=== PATIENT | female | born 1985 | race Caucasian/White ===

== ENCOUNTER 2021-08-08 15:57 | Emergency (ER) | payer OTHER, SELFPAY ==
[2021-08-08 17:10] VITALS: BP 102/73; PULSE 92; RESP 18; TEMP 36.8; O2SAT 100; BMI 19.8
--- NOTE | 2021-08-08 17:42 | HMH.EDUTC ---
[facility] [place] Disposition Clinical Impression: Dental abscess Disposition: Home, Self-Care Condition on Discharge: Good Instructions: Tooth Abscess, Amoxicillin and Clavulanic Acid, Ibuprofen Additional Instructions: Use dental balls as prescribed Follow up with Dentist as soon as possible, call now and make appointment as it may take you several weeks to get in Take medication as prescribed and make sure to take antibiotic with food as this may help with Gi upset Return if needed Straight to ER if any life threatening symptoms Prescriptions: Ibuprofen [Ibuprofen 400mg Tablet] 400 mg PO Q4HP PRN #20 tab PRN Reason: Moderate Pain Transmission Status: Pending to [facility] Amoxicillin/Potassium Clav [Augmentin 875-125 Tablet] 1 tab PO Q12H 10 Days #20 tab Transmission Status: Pending to [facility] Referrals: Urvashi Simpson APRN [Primary Care Provider] - As needed Time of Disposition: 17:52 Medical Decision Making - Noble Inquiry Pt receiving controlled substance: No Noble was queried for this patient: No Vital Signs: 08/08/21 17:10 Temperature 98.3 F Temperature Source Oral Pulse Rate [Right Brachial] 92 H Respiratory Rate 18 Blood Pressure [Right Arm] 102/73 L Blood Pressure Mean [Right Arm] 82 Blood Pressure Source [Right Arm] Automatic Cuff Blood Pressure Position [Right Arm] Sitting 02 Sat by Pulse Oximetry 100 Oxygen Delivery Method Room Air Medical Decision Narrative: Due to patient size and weight medication dosed per pharmacy [facility] HPI - General Stated complaint: DENTAL ABSCESS Time Seen by Provider: 08/08/21 17:42 Mode of Arrival: Ambulatory Source of Information: Patient Limitations: No Limitations Description of Symptoms (Recalled from Triage Doc. by RN): C/O ABSCESSED TOOTH HEENT Symptoms (Recalled from RN notes): Yes Resp Symptoms (Recalled from RN notes): No Skin Symptoms (Recalled from RN notes): No MS Symptoms (Recalled from RN notes): No Functional Status (Recalled from RN notes): WNL - History of Present Illness Provider Complaint: Patient states that she has several broken teeth on her left lower gumline in the back States that she has been having pain and swelling in her jaw and knew she was getting a dental infection so she came in to get antibioitic todya when the swelling in her lower jaw area was worse - Related Data Previous Rx's Medication Instructions Recorded Amoxicillin/Potassium Clav 1 tab PO Q12H 10 Days #20 tab 08/08/21 [Augmentin 875-125 Tablet] Ibuprofen [Ibuprofen 400mg 400 mg PO Q4HP PRN #20 tab 08/08/21 Tablet] Allergies Allergy/AdvReac Type Severity Reaction Status Date / Time No Known Allergies Allergy Verified 11/24/18 19:32 - Worker's Comp Is this a Worker's Comp case?: No [facility] History - Hepatitis A Screen Drug use history?: No High risk sexual behaviors?: No History of sexually transmitted infection?: No Currently employed?: No Childcare worker?: No Do you have indoor plumbing?: Yes Do you have electricity?: Yes Attestation statement:: This patient has been screened for Hepatitis A risk factors. I have reviewed the patient's past medical history: Yes Medical History: Denies:: Diabetes Mellitus Type 1, Diabetes Mellitus Type 2 - Social History Smoking Status: Unknown if ever smoked Tobacco Type: smokeless tobacco # Packs/Day (cigarettes): 0 Alcohol Intake: never Substance Use Type: marijuana Occupational Status: other ROS Obtained: Yes All systems reviewed & no additional complaints, Yes Systems reviewed as appropriate & no additional complaints - Constitutional Constitutional: Reports system reviewed and no additional complaints, except as docu, Denies fever(s) - ENT Ears, Nose, Mouth, and Throat: Reports system reviewed and no additional complaints, except as docu, Reports dental pain - Cardiovascular Cardiovascular: Reports system reviewed and no additional compl
[2021-08-08 18:02] VITALS: BP 102/73; PULSE 92; RESP 18; TEMP 36.8; O2SAT 100
== END 2021-08-08 18:10 | disposition home or self-care (01) ==
PROVIDERS: Emergency Provider Nurse Practitioner; PCP Nurse Practitioner Family
DX: K04.7 Periapical abscess without sinus (principal)
CPT/HCPCS: 99202; G0463

== ENCOUNTER → 2021-11-29 14:39 | Outpatient (CLI) | payer OTHER, SELFPAY | PROVIDERS: Visit Provider Nurse Practitioner | DX: U07.1 COVID-19 (principal) | CPT/HCPCS: C9803; U0003; U0005 ==

== ENCOUNTER → 2021-12-06 11:31 | Outpatient (CLI) | payer OTHER, SELFPAY | PROVIDERS: Visit Provider Nurse Practitioner | DX: U07.1 COVID-19 (principal) | CPT/HCPCS: C9803; U0003; U0005 ==

== ENCOUNTER → 2021-12-16 11:22 | Outpatient (CLI) | payer OTHER, SELFPAY | PROVIDERS: Visit Provider Nurse Practitioner | DX: U07.1 COVID-19 (principal) | CPT/HCPCS: C9803; U0003; U0005 ==

== ENCOUNTER → 2022-01-05 10:55 | Outpatient (CLI) | payer OTHER, SELFPAY ==
[2022-01-06 09:00] LABS: Covid-19 Nasal PCR Sendout Lex NOT DETECTED
== END ==
PROVIDERS: Visit Provider Nurse Practitioner
DX: Z20.822 Contact with and (suspected) exposure to COVID-19 (principal)
CPT/HCPCS: C9803; U0004; U0005

== ENCOUNTER → 2022-04-24 10:55 | Outpatient (CLI) | payer OTHER, SELFPAY ==
[2022-04-24 11:17] LABS: Basophils # 0.1 K/mm3 (0-0.2); Basophils % 1.5 % (0.1-2.0); Eosinophils # 0.1 K/mm3 (0.0-0.4); Eosinophils % 1.6 % (0.1-12.0); Hematocrit 38.3 % (37.0-47.0); Hemoglobin 12.9 g/dL (12.2-16.2); Lymphocytes # 1.1 K/mm3 (0.7-4.5); Lymphocytes % 21.7 % (10-50); Mean Corpuscular HGB Conc 33.6 g/dL (31.8-35.4); Mean Corpuscular Hemoglobin 29.2 pg (27.0-31.2); Mean Platelet Volume 8.3 fl (7.4-10.4); Monocytes # 0.2 K/mm3 (0.1-1.0); Monocytes % 4.2 % (1.7-9.3); Neutrophils # 3.4 K/mm3 (1.8-7.8); Platelet Count 276 K/mm3 (142-424); Red Cell Distribution Width 14.1 % (11.5-17.5); White Blood Count 4.8 K/mm3 (4.8-10.8)
[2022-04-24 12:04] LABS: Alanine Aminotransferase 14 U/L (12-78); Albumin Level 4.2 g/dl (3.5-5.0); Albumin/Globulin Ratio 1.6 (1.1-1.8); Alkaline Phosphatase 65 U/L (38-126); Anion Gap 13.7 mEq/L (5-15); Aspartate Amino Transferase 22 U/L (14-36); Bilirubin,Total 0.9 mg/dl (0.2-1.3); Blood Urea Nitrogen 7 mg/dl (7-17); Calcium 9.1 mg/dl (8.4-10.2); Carbon Dioxide 27 mmol/L (22.0-30.0); Chloride 103 mmol/L (98-107); Estimated Glomerular Filt Rate 81 ml/min (>60); GFR (African American) 98 ML/MIN (>60); Globulin 2.6 g/dL (1.3-3.2); Glucose 100 mg/dl (74-100); Potassium 3.7 mmoL/L (3.5-5.1); Sodium 140 mmol/L (136-145); Total Protein,Serum 6.8 g/dl (6.3-8.2)
[2022-04-24 12:34] LABS: Thyroid Stimulating Hormone 2.39 uIU/mL (0.465-4.68)
[2022-04-24 12:53] LABS: Vitamin B12 378 pg/mL (239-931)
[2022-04-24 15:13] LABS: Ferritin 12.1 ng/ml (6.24-137)
== END ==
PROVIDERS: PCP Nurse Practitioner Family; Visit Provider Nurse Practitioner Family
DX: G25.81 Restless legs syndrome (principal)
CPT/HCPCS: 36415; 80053; 82607; 82728; 84443; 85025

== ENCOUNTER 2023-01-18 15:50 | Emergency (ER) | payer OTHER, SELFPAY ==
[2023-01-18 15:58] VITALS: BP 142/103; PULSE 93; O2SAT 99
[2023-01-18 16:00] VITALS: BP 142/103; PULSE 85; RESP 18; TEMP 36.9; O2SAT 98; BMI 21.8
--- NOTE | 2023-01-18 16:05 | HMH.EDGENADL ---
Discharge Plan Disposition Patient Disposition: Home, Self-Care Condition: Good Prescriptions Prescriptions: New hydrocodone-acetaminophen 5-325 mg tablet 1 tab PO Q6H PRN (Reason: pain) 3 Days Qty: 12 0RF No Action ibuprofen 400 MG tablet 400 mg PO Q4HP PRN (Reason: Moderate Pain) Qty: 20 0RF amoxicillin-pot clavulanate 1 EACH tablet 1 tab PO Q12H 10 Days Qty: 20 0RF Referrals Follow up/Referrals: Pepe London MD [Staff Physician] - See instructions (Please call clinic tomorrow and make an appointment for Sunday per Dr. Farias's request) Nicole Caal APRN [Primary Care Provider] - See instructions Clinical Impressions Clinical Impression: Eyebrow laceration Instructions Patient Instructions: DI for Acute Abdominal Pain Discharge ED Provider: Nay Breaux General Adult HPI General Chief complaint: Abdominal Pain Stated complaint: sent by Ten[facility] office LT lower Abd pain, diarrh Time Seen by Provider: 01/18/23 16:05 Mode of Arrival: Ambulatory Source of Information: Patient Limitations: No Limitations Description of Symptoms (Recalled from ER Triage Doc. by RN): pt comes in with c/o right sided lower abdominal pain. symptoms began last night. pt was seen by pcp earlier today. urine was tested from that visit and everything was negative. LMP 1 week ago per pt report. History of Present Illness HPI narrative: Patient is a 37-year-old female presenting with right lower quadrant abdominal pain. States that was very severe last night so much so that she could barely move any type of movement made significantly worse. Denies any urinary burning frequency or urgency. Denies any vaginal discharge or vaginal bleeding. Denies any constipation but has had a little diarrhea. No nausea or vomiting associate with this. Does still have her appendix does not have a history of ovarian pathology. Was seen by her PCP earlier today had a urine test which was negative. Related Data Previous Rx's Medication Instructions Recorded amoxicillin 875 mg-potassium 1 tab PO Q12H 10 days #20 tabs 08/08/21 clavulanate 125 mg tablet ibuprofen 400 mg tablet 400 mg PO Q4HP PRN Moderate Pain 08/08/21 #20 tabs hydrocodone 5 mg-acetaminophen 325 1 tab PO Q6H PRN pain 3 days #12 01/18/23 mg tablet tabs Allergies Allergy/AdvReac Type Severity Reaction Status Date / Time No Known Allergies Allergy Verified 11/24/18 19:32 [facility] Disclaimer: The information contained in this section may have been updated after the patient was seen, as this information can be updated by other users. Social History Smoking Status: Current every day smoker tobacco type: smokeless tobacco alcohol intake: never substance use type: marijuana current occupational status: other Travel in the last 8 weeks: None ROS Obtained: Yes All systems reviewed & no additional complaints except as documented Physical Exam General General appearance: alert Respiratory Respiratory exam: Present normal lung sounds bilaterally; Absent respiratory distress, wheezes or stridor Cardiovascular Cardiovascular exam: Present regular rate; Absent tachycardia Abdominal Exam Abdominal exam: Present other (Right lower quadrant tenderness palpation with some involuntary guarding no tenderness in other quadrants.) Neurological Exam Neurological exam: Present alert and oriented X3 Medical Decision Making Noble Inquiry Pt receiving controlled substance: No Noble was queried for this patient: No Vital Signs: 01/18/23 16:00 01/18/23 15:58 01/18/23 17:04 Temperature 98.4 F Temperature Source Oral Pulse Rate 93 H 70 Pulse Rate [Left] 85 Respiratory Rate 18 Blood Pressure 142/103 H 119/79 Blood Pressure [Right Arm] 142/103 H Blood Pressure Mean 126 94 Blood Pressure Mean [Right Arm] 116 02 Sat by Pulse Oximetry 98 99 100 Oxygen Delivery Method Room Air Replaced By [facility]
[2023-01-18 16:07] LABS: Microscopic, Urine URINE MICROSCOPIC (MICROSCOPIC)
--- NOTE | 2023-01-18 16:14 | PC.NURSE ---
Er at bedside
--- NOTE | 2023-01-18 16:16 | CT_ITS ---
PROCEDURE INFORMATION: Exam: CT Abdomen And Pelvis With Contrast Exam date and time: 01/18/2023 4:33 PM Age: 37 years old Clinical indication: Abdominal pain; Additional info: Rlq abd pain TECHNIQUE: Imaging protocol: Computed tomography of the abdomen and pelvis with contrast. Radiation optimization: All CT scans at this facility use at least one of these dose optimization techniques: automated exposure control; mA and/or kV adjustment per patient size (includes targeted exams where dose is matched to clinical indication); or iterative reconstruction. Contrast material: ISOVUE; Contrast volume: 75 ml; Contrast route: IV; REPORTING DATA: Count of CT and Cardiac NM exams in prior 12 months: This patient has received 0 known CTs and 0 known cardiac nuclear medicine studies in the 12 months prior to the current study. COMPARISON: No relevant prior studies available. FINDINGS: Lungs: Lung bases are clear. Liver: Normal. No mass. Gallbladder and bile ducts: Normal. No calcified stones. No ductal dilation. Pancreas: Unremarkable. Main pancreatic duct is not significantly dilated. Spleen: Normal. No splenomegaly. Adrenal glands: Normal. No mass. Kidneys and ureters: Normal. No hydronephrosis. Stomach and bowel: Remainder of the GI tract is unremarkable. Appendix: In appendix is difficult to identify with confidence due to paucity of body fat and low position of the cecum within the pelvis. There is a tubular shaped structure with a punctate calcification along the right pelvic sidewall that may represent a mildly distended appendix. Intraperitoneal space: See Reproductive finding. Vasculature: Unremarkable. No abdominal aortic aneurysm. Lymph nodes: Unremarkable. No enlarged lymph nodes. Urinary bladder: Unremarkable as visualized. Reproductive: There is a 5 cm complex adnexal cyst situated along the midline anterior to the uterus and above the bladder dome with a mildly thickened wall a and is subtle adjacent fat stranding raising concern for ovarian torsion. There is a 2nd slightly smaller complex left adnexal cyst measuring 3-4 cm more nonspecific. There is a mild amount of pelvic free fluid more extensive than what is normally seen with ovulation. Uterus is deviated to the right but otherwise unremarkable. Bones/joints: Unremarkable. No acute fracture. Soft tissues: Unremarkable. IMPRESSION: 1. Bilateral complex cystic adnexal masses with accompanying pelvic free fluid largest of which as in unusual location along the midline above the urinary bladder with findings concerning for ovarian torsion. Surgical consultation recommended. 2. Limited assessment of the appendix due to location lobe along the right lower pelvis and obscuring pelvic pathology.
[2023-01-18 16:20] LABS: Basophils # 0.1 K/mm3 (0-0.2); Basophils % 0.4 % (0.1-2.0); Eosinophils # 0.2 K/mm3 (0.0-0.4); Eosinophils % 1.7 % (0.1-12.0); Hematocrit 41.2 % (37.0-47.0); Hemoglobin 13.3 g/dL (12.2-16.2); Lymphocytes # 1.3 K/mm3 (0.7-4.5); Mean Corpuscular HGB Conc 32.4 g/dL (31.8-35.4); Mean Corpuscular Hemoglobin 28.7 pg (27.0-31.2); Mean Corpuscular Volume 88.4 fl (81-99); Mean Platelet Volume 7.9 fl (7.4-10.4); Monocytes # 0.4 K/mm3 (0.1-1.0); Monocytes % 3.4 % (1.7-9.3); Neutrophils # 10.9 K/mm3 (1.8-7.8); Neutrophils % 84.5 % (37.0-80.0); Platelet Count 422 K/mm3 (142-424); Red Blood Count 4.66 M/mm3 (4.20-5.40); Red Cell Distribution Width 13.7 % (11.5-17.5); White Blood Count 12.9 K/mm3 (4.8-10.8)
[2023-01-18 16:22] LABS: Appearance,Urine CLEAR (Clear); Bilirubin,Urine Negative (Negative); Blood, Urine Negative (Negative); Color,Urine YELLOW (Yellow); Glucose,Urine (UA) Negative (Negative); Ketones,Urine Negative (Negative); Leukocyte Esterase,Urine Negative (Negative); Nitrate,Urine Negative (Negative); Protein,Urine Negative (Negative); Urobilinogen,Urine 0.2 EU/dl (0.2)
[2023-01-18 16:23] LABS: Urine Pregnancy, HCG Qual. Negative (Negative)
[2023-01-18 16:30] LABS: Chloride 105 mmol/L (98-107); Potassium 3.7 mmoL/L (3.5-5.1); Sodium 141 mmol/L (136-145)
--- NOTE | 2023-01-18 16:30 | PC.NURSE ---
pt gone to ct
[2023-01-18 16:32] LABS: Blood Urea Nitrogen 9 mg/dl (7-17); Creatinine Clearance Estimated 84 mL/min (50-200); Estimated Glomerular Filt Rate 94 ml/min (>60); GFR (African American) 113 ML/MIN (>60)
[2023-01-18 16:33] LABS: WBC,Urine Occasional #/hpf (0-3)
[2023-01-18 16:33] LABS: Alanine Aminotransferase 15 U/L (12-78); Albumin Level 5.1 g/dl (3.5-5.0); Albumin/Globulin Ratio 1.3 (1.1-1.8); Alkaline Phosphatase 95 U/L (38-126); Anion Gap 11.7 mEq/L (5-15); Aspartate Amino Transferase 28 U/L (14-36); Bilirubin,Total 1.5 mg/dl (0.2-1.3); Carbon Dioxide 28 mmol/L (22.0-30.0); Globulin 3.8 g/dL (1.3-3.2); Glucose 98 mg/dl (74-100); Total Protein,Serum 8.9 g/dl (6.3-8.2)
--- NOTE | 2023-01-18 16:51 | PC.NURSE ---
pt laying in bed,call light at bedside
--- NOTE | 2023-01-18 17:03 | PC.NURSE ---
pt used restroom now resting in bed with call light at side
[2023-01-18 17:04] VITALS: BP 119/79; PULSE 70; O2SAT 100
--- NOTE | 2023-01-18 17:25 | PC.NURSE ---
Pt tolerated suture repair. Bandage applied. Pt tolerated.
--- NOTE | 2023-01-18 17:25 | PC.NURSE ---
DR COSBY SPEAKING WITH DR. MCWILLIAMS
--- NOTE | 2023-01-18 17:26 | US_ITS ---
PROCEDURE INFORMATION: Exam: US Pelvis, Transvaginal Exam date and time: 01/18/2023 5:50 PM Age: 37 years old Clinical indication: Pain and abnormal findings; Abnormal imaging test; Patient HX: Abn CT -- intermittent pelvic pain RT side; Additional info: Ovarian torsion TECHNIQUE: Imaging protocol: Real-time transvaginal pelvic ultrasound with image documentation. Transvaginal imaging was used for better evaluation of the endometrium, adnexa, and/or cervix. COMPARISON: CT ABDOMEN PELVIS W CON 01/18/2023 4:33 PM FINDINGS: Uterus: Uterus is slightly retroverted and unremarkable in overall size, contour measuring 8.0 x 3.6 x 4.6 cm. No uterine masses are textural changes within the myometrium. Endometrial lining is well discerned not thickened measuring 7 mm. Cervix: Cervix is unremarkable. Right ovary/adnexa: Right ovary is unremarkable in overall size measuring 4.1 x 3.2 x 1.6 cm containing 2 small follicles. Normal Doppler flow. No right adnexal mass. Left ovary/adnexa: Left ovary is enlarged measuring 7.5 by 7.4 x 4.3 cm and contains 2 cystic structures largest of which measures 4.5 x 3.6 cm containing diffuse internal echoes suggestive of either hemorrhagic cyst or cystic endometrioma. The 2nd cystic structure measures 3.5 x 2.5 cm and relatively simple in appearance. Adequate Doppler flow. No compelling evidence of ovarian torsion. Intraperitoneal space: Mild-moderate amount of complex fluid within the pelvis containing diffuse internal echoes and may represent blood products. IMPRESSION: 1. Enlarged left ovary secondary to 2 ovarian cysts largest of which is complex suggestive of either hemorrhagic cyst or cystic endometrioma. No compelling evidence of ovarian torsion. 2. Mild-moderate amount of complex free fluid within the pelvis that may also be hemorrhagic in nature and may be secondary to partial cyst rupture or endometriosis. However would recommend correlation with hCG to exclude occult ectopic and close clinical follow-up.
--- NOTE | 2023-01-18 17:27 | PC.NURSE ---
RADIOLOGY NOTIFIED OF TRANSVAGINAL US
[2023-01-18 17:30] VITALS: BP 146/101; PULSE 70; O2SAT 100
--- NOTE | 2023-01-18 17:49 | PC.NURSE ---
pt to rad via wheelchair
--- NOTE | 2023-01-18 18:21 | PC.NURSE ---
pt back to room from radiology
--- NOTE | 2023-01-18 18:27 | PC.NURSE ---
pt resting in bed no complaints at this time
--- NOTE | 2023-01-18 18:31 | PC.NURSE ---
speaking to dr London about ultrasound results
[2023-01-18 19:02] VITALS: BP 123/88; PULSE 70; RESP 16; TEMP 36.9; O2SAT 100
== END 2023-01-18 19:04 | disposition home or self-care (01) ==
PROVIDERS: Emergency Provider Student in an Organized Health Care Education/Training Program; PCP Nurse Practitioner Family
DX: R10.32 Left lower quadrant pain (principal); R10.31 Right lower quadrant pain; R19.7 Diarrhea, unspecified; F12.90 Cannabis use, unspecified, uncomplicated; F17.290 Nicotine dependence, other tobacco product, uncomplicated
CPT/HCPCS: 74177; 76830; 80053; 81001; 81025; 85025; 96361; 96374; 96375; 99285; J2405; Q9967

== ENCOUNTER → 2023-02-27 12:45 | Outpatient (CLI) | payer OTHER, SELFPAY ==
--- NOTE | 2023-02-27 12:49 | US_ITS ---
FINAL REPORT CLINICAL HISTORY: following ovarina cyst COMPARISON: January 18, 2023 FINDINGS: Transvaginal sonographic images of the pelvis were obtained. The uterus is anteverted and measures 8.3 x 5.7 x 4.3 cm. The endometrium measures 1.2 cm in a reproductive age patient. The right ovary measures up to 5.7 cm. The left ovary measures up to 6.0 cm. There is a multi-septated lesion in the right ovary measuring 3.0 x 2.7 cm. This is new from the prior exam in may represent a complex physiologic cyst. There is a hypoechoic complex cystic structure in the left ovary with increased through transmission measuring 3.9 x 2.8 cm that may represent a hemorrhagic cyst or endometrioma. There is a small amount of free fluid. IMPRESSION: New multi-septated cystic lesion in the right ovary may represent a complex cyst in this favored to be physiologic. Recommend 6 or 10 week follow-up. Complex cystic mass in the left ovary with diffuse internal echoes has decreased in size since the prior exam and could represent a hemorrhagic cyst or endometrioma. Reviewed, Interpreted and Dictated by Saúl Dias MD Transcribed by Justen Ambriz Authenticated and [facility]
== END ==
PROVIDERS: PCP Nurse Practitioner Family; Visit Provider Nurse Practitioner Obstetrics & Gynecology
DX: N83.209 Unspecified ovarian cyst, unspecified side (principal)
CPT/HCPCS: 76830

== ENCOUNTER → 2023-04-24 14:58 | Outpatient (CLI) | payer OTHER, SELFPAY ==
--- NOTE | 2023-04-24 15:01 | US_ITS ---
FINAL REPORT CLINICAL HISTORY: following ovarian cyst right side COMPARISON: 02/27/2023 FINDINGS: Transvaginal sonographic images of the pelvis were obtained. The uterus measures 8.1 x 3.9 x 4.6 cm. The endometrial thickness measures 1.35 cm. The right ovary measures 2.6 cm in length. The left ovary measures 6.4 cm in length. The previously identified complex cystic mass in the right ovary has resolved. The previously identified complex mass in the left ovary is again identified and contains internal debris. This is slightly smaller than previous but has more irregular borders, probably related to a collapsing hemorrhagic cyst or endometrioma. IMPRESSION: Resolution of previously identified right ovarian mass. Left ovarian mass as above, may represent a collapsing hemorrhagic cyst or endometrioma. Recommend continued follow-up and gynecologic evaluation. Reviewed, Interpreted and Dictated by Saúl Dias MD Transcribed by Michelle Arguello Authenticated and [facility]
== END ==
PROVIDERS: PCP Nurse Practitioner Family; Visit Provider Nurse Practitioner Obstetrics & Gynecology
DX: N83.201 Unspecified ovarian cyst, right side (principal)
CPT/HCPCS: 76830

== ENCOUNTER 2024-07-04 09:59 | Emergency (ER) | payer OTHER, SELFPAY ==
[2024-07-04 10:00] VITALS: BP 134/77; PULSE 90; RESP 18; TEMP 36.7; O2SAT 98; BMI 23.2
--- NOTE | 2024-07-04 10:20 | PC.NURSE ---
Dr. Caballero at [facility] for pt eval
[2024-07-04] MEDS: AMOXICILLIN/CLAVULANATE POTASSIUM 875/125MG TABLET 1 EACH PO (10:23)
--- NOTE | 2024-07-04 10:25 | HMH.EDGENADL ---
Discharge Plan Disposition Patient Disposition: Home, Self-Care Condition: Good Prescriptions Prescriptions: New amoxicillin-pot clavulanate 875-125 mg tablet 1 tab PO BID 7 Days Qty: 14 0RF No Action ropinirole 0.5 mg tablet 0.5 mg PO HS 30 Days Qty: 30 5RF Referrals Follow up/Referrals: Nicole Caal APRN [Primary Care Provider] - See instructions Activity Restrictions/Add. Instructions Additional Instructions/Restrictions: Your dad test to see if he can get in for quick follow-up today before the weekend. Discontinue amoxicillin, start taking Augmentin twice daily for 7 days. Ice the jaw, continue taking all of your other medications as prescribed. Call your family doctor to establish care for this visit to the emergency department and schedule follow-up within 48 hours to ensure improvement. If you have any worsening of your condition or any other concerning signs or symptoms, return to the emergency department or your primary care doctor for further evaluation. Clinical Impressions Clinical Impression: Swelling of right side of face Print Language Print Language: Nicaraguan Discharge ED Provider: Milan Caballero General Adult HPI General Chief complaint: Dental/Oral Stated complaint: dental work Wed., abscess Time Seen by Provider: 07/04/24 10:10 Mode of Arrival: Ambulatory Limitations: No Limitations Description of Symptoms (Recalled from ER Triage Doc. by RN): PT REPORTS DENTAL WORK/EXTRACTION ON 07/02/2024. DENIES PAIN BUT REPORTS SWELLING TO RIGHT LOWER GUM. History of Present Illness HPI narrative: Please note that above description of symptoms, in this electronic medical record under categorization of recalled from ER triage doctor by RN are reflective of an initial nursing assessment, however, is not reflective of my full history and physical exam that was personally taken and clarified. Consequentially, this preceding description of symptoms, which may include the patient's categorized chief complaint in the EMR, do not reflect my personal clinical impression, and the ultimate description of history of present illness and patient stated complaints should be deferred to this section of the note. Unless stated otherwise or congruent with this section of the note, additional signs, symptoms, or incongruence should be interpreted as inaccurate with my clinical impression. Related Data Previous Rx's ?Medication ?Instructions ?Recorded ropinirole 0.5 mg tablet 0.5 mg PO HS 30 days #30 tabs 04/07/24 amoxicillin 875 mg-potassium 1 tab PO BID 7 days #14 tabs 07/04/24 clavulanate 125 mg tablet Allergies Allergy/AdvReac Type Severity Reaction Status Date / Time No Known Allergies Allergy Verified 03/12/24 14:17 [facility] Disclaimer: The information contained in this section may have been updated after the patient was seen, as this information can be updated by other users. Medical History Restless leg syndrome Family History Family/Other Cancer Aunt-Breast and colon Social History Smoking Status: Current every day smoker tobacco type: smokeless tobacco alcohol intake: current alcohol intake frequency: a few times a month substance use type: denies use current occupational status: other Travel in the last 8 weeks: None ROS Obtained: Yes All systems reviewed & no additional complaints except as documented Physical Exam General General appearance: alert Head Head exam: atraumatic and normocephalic Eye Eye exam: Present normal appearance, PERRL and EOMI ENT ENT exam: Present other (Right-sided facial swelling. Numerous stitches in gumline about right upper and lower jaw. No fluctuance, minimal tenderness. Swelling at angle of jaw externally. No stridor, palatal swelling, uvular deviation, tongue swelling, floor of mouth elevation or swelling, trismus, or any other concerns) Neck Neck exam: Present normal inspection, full ROM and trachea midline Respiratory Respiratory exam: Absent respiratory distress, wheezes, stridor, accessory muscle use or prolonged expiratory phase Cardiovascular Cardiovascular exam: Present other (Pulses equal symmetric in upper and lower extremities) Abdominal Exam Abdominal exam: Present soft; Absent distention, tenderness or pulsatile mass Extremities Exam Extremities exam: Absent edema Neurological Exam Neurological exam: Present alert, oriented X3 and CN II-XII intact; Absent motor sensory deficit Skin Skin exam: Present warm and dry; Absent diaphoresis or erythema Medical Decision Making Medical Records Medical records reviewed: Yes I reviewed the patient's medical records. Noble Inquiry Pt receiving controlled substance: No Noble was queried for this patient: No Vital Signs: 07/04/24 10:00 07/04/24 10:29 Temperature 98.1 F 98.1 F Temperature Source Oral Oral Pulse Rate 74 Pulse Rate [Radial] 90 Respiratory Rate 18 14 Blood Pressure 123/73 Blood Pressure [Right Arm] 134/77 Blood Pressure Mean [Right Arm] 96 Blood Pressure Source Automatic Cuff Blood Pressure Source [Right Arm] Automatic Cuff Blood Pressure Position Sitting Blood Pressure Position [Right Arm] Sitting 02 Sat by Pulse Oximetry 98 Oxygen Delivery Method Room Air Room Air Orders (Tests/Meds): ED MEDICATIONS Discontinued Medications Generic Name Dose Route Start Last Admin Trade Name Freq PRN Reason Stop Dose Admin Amoxicillin/Clavulanate Potassium 1 each 07/04/24 10:16 07/04/24 10:23 Amoxicillin/Clavulanate Potassium 875/125mg Tablet PO 07/04/24 10:17 1 each ONCE ONE Administration ORDERS Category Date Time Status POCUS Point of Care (ER Only) Stat Exams 07/04/24 10:16 Ordered Medical Decision Narrative: 38-year-old female recent history of dental extractions presenting with concern for pain and swelling. Patient had dental extraction of most right-sided upper and lower teeth 2 days prior to this on 07/02. Having swelling and moderate tenderness. Discharged on amoxicillin, chlorhexidine rinses, ibuprofen, prednisone. States that the swelling is getting worse and she came in to make sure it was okay. Has not seen her dentist about this since. Taking part medications as prescribed. No difficulty or pain with swallowing, difficulty breathing, difficulty or pain with range of motion of neck, fevers, chills, vomiting, trismus, or any other concerns. Minimally tender when not applying pressure, but when applying pressure to lower jaw from the outside, moderate to severe.. History was obtained via conversation with patient. On arrival, patient hemodynamically stable, alert, oriented x4, appropriate, GCS 15, moving all extremities spontaneously, pupils equal and reactive to light. Full physical exam performed and significant for uncomfortable appearing female in no acute distress. She does have swelling beyond the angle of her jaw on right mandible which is soft, nonfluctuant. Intraoral exam with numerous sutures at beds of previously extracted teeth, no evidence of dry socket or infection. No tenderness along gumline. No fluctuance. Range of motion of neck normal. No evidence of tonsillitis, exudate, pharyngeal erythema, uvular deviation, palatal swelling, trismus, dental abscess, angioedema, or other abnormal shaye pharyngeal findings. differential includes routine postop swelling, hematoma, abscess, among others. Patient was given Augmentin to replace amoxicillin in the setting of potential resistance of oral bugs. Bedside [id number] ultrasound of the jaw without discrete fluid collection. Edema, no evidence of bony involvement at the angle of the mandible. Given patient presentation, workup, history, this most likely represents routine postoperative swelling. Less likely abscess versus fluid collection given recent extraction, no systemic signs or symptoms. Because patient at baseline without signs or symptoms of clinical decompensation, deemed appropriate for discharge. Results were relayed to patient who voiced understanding and were agreeable to outpatient management and follow up. I discussed my clinical impression with patient and answered all questions. At this time, the evidence for any other entities in the differential is insufficient to warrant any further testing or ED observation. This was explained as well. Advisory was given that persistent or worsening symptoms require further evaluation. I confirmed the understanding of this discussion. Fire Technician disclaimer Much of this encounter note is an electronic cigar maker spoken language to printed text. Electronic cigar maker of the spoken language may permit errors. Although I have reviewed the note, some errors may still exist. Procedures Limited Ultrasound Indication:: Limited soft tissue ultrasound Indication: Soft tissue swelling of right jaw Identified structures: Location: Right mandible Findings: Edema, no drainable abscess. Impression: Postop edematous versus inflammatory fluid right jaw Images were saved to permanent archive The study was technically adequate Soft Tissue CPT Codes: CPT Neck: 56351-79 CPT Upper extremity: 39097-89 CPT Axilla: 07738-42 CPT Chest wall: 69523-57 CPT Breast: 11600-32-FM/LT (complete), 33120-70-XK/LT (limited), CPT Upper Back: 36879-50 CPT Lower Back: 79969-00 CPT Abdominal Wall: 74065-64 CPT Pelvic Wall: 05121-39 CPT Lower Extremity: 41836-06 CPT Other Soft Tissue: 30112-55 This study was performed by me, and I personally interpreted all images/videos. Based on my clinical judgement, these images were adequate and did not necessitate further imaging. Critical Care Critical Care Time Critical Care Time: No
[2024-07-04 10:29] VITALS: BP 123/73; PULSE 74; RESP 14; TEMP 36.7; O2SAT 99
== END 2024-07-04 10:31 | disposition home or self-care (01) ==
PROVIDERS: Emergency Provider Emergency Medicine; PCP Nurse Practitioner Family
DX: R22.0 Localized swelling, mass and lump, head (principal); Z98.818 Other dental procedure status
CPT/HCPCS: 99284

== ENCOUNTER 2025-09-26 16:20 | Emergency (ER) | payer OTHER, SELFPAY ==
[2025-09-26 16:21] VITALS: BP 142/76; PULSE 75; RESP 20; TEMP 36.6; O2SAT 98; BMI 24.2
--- NOTE | 2025-09-26 16:47 | ED_ITS ---
Discharge Plan Disposition Patient Disposition: Home, Self-Care Prescriptions Prescriptions: New erythromycin 5 mg/gram (0.5 %) ointment 1 applic ophthalmic (eye) Q8H Qty: 3.5 0RF No Action ropinirole 0.5 mg tablet 0.5 mg PO DAILY Qty: 30 11RF Referrals Follow up/Referrals: Nicole Caal APRN [Primary Care Provider, Medical] - See instructions Activity Restrictions/Add. Instructions Additional Instructions/Restrictions: At this time it was felt you are safe to be discharged home. If new or worsening symptoms please do not hesitate to return the emergency department. Please take your medications as prescribed. Please call and schedule appoint with Dr. Osborne at my eye doctor or one of his associates on Sunday morning. Their office can be reached at [phone]. Clinical Impressions Clinical Impression: Abrasion, corneal Print Language Print Language: Palestinian Discharge ED Provider: Mykel Harrell General Adult HPI General Chief complaint: Eye Problems Stated complaint: AO 11-1 scratched right eyeball with fingernail Time Seen by Provider: 09/26/25 16:33 Mode of Arrival: Ambulatory Source of Information: Patient Description of Symptoms (Recalled from ER Triage Doc. by RN): pt is here bc she thinks she scratched her eye last night while taking out costume contacts, eye is red and irritated History of Present Illness HPI narrative: Patient is a 39-year-old female who presents Emergency Department for evaluation of trauma to her right eye. Patient was taking out following contacts (she does not wear contacts at baseline) when she feels as if she inadvertently scratched her eye it is gotten progressively irritated throughout the day and she presents here for continued evaluation. No other acute complaints at this time. Please note that above description of symptoms, in this electronic medical record under categorization of recalled from ER triage doctor by RN are reflective of an initial nursing assessment, however, is not reflective of my full history and physical exam that was personally taken and clarified. Consequentially, this preceding description of symptoms, which may include the patient's categorized chief complaint in the EMR, do not reflect my personal clinical impression, and the ultimate description of history of present illness and patient stated complaints should be deferred to this section of the note. Unless stated otherwise or congruent with this section of the note, additional signs, symptoms, or incongruence should be interpreted as inaccurate with my clinical impression. Related Data Previous Rx's ?Medication ?Instructions ?Recorded ropinirole 0.5 mg tablet 0.5 mg PO DAILY #30 tabs erythromycin 5 mg/gram (0.5 %) eye 1 applic ophthalmic (eye) Q8H 09/26/25 ointment corneal abrasion #3.5 grams Allergies Allergy/AdvReac Type Severity Reaction Status Date / Time No Known Allergies Allergy Verified 04/17/25 13:33 [facility] Disclaimer: The information contained in this section may have been updated after the patient was seen, as this information can be updated by other users. Medical History Restless leg syndrome Family History Family/Other Cancer Aunt-Breast and colon Social History (Updated 04/17/25 @ 13:47 by GREGORIA Newman) Smoking Status: Never smoker alcohol intake: current alcohol intake frequency: a few times a month substance use type: denies use current occupational status: other Travel in the last 8 weeks?: None Have you lived/traveled outside [place] in past 30 days?: No Contact w/someone who lives/traveled outside US past 30 days?: No Exposure to someone with infectious disease in past 14 days?: No Do you have a fever (greater than 100.4 F or 38 C)?: No Have you tested positive for COVID-19?: No Exposed to someone with COVID-19 in past 14 days?: No Do you have a sore throat?: No Do you have a cough?: No Do you have any weakness?: No Do you have any diarrhea?: No Are you experiencing any unusual bleeding?: No Do you have any muscle aches/pain?: No Do you have any abdominal pain?: No Are you experiencing loss of taste or smell?: No Other Medical History Have you received the Pneumonia Vaccine: No ROS Obtained: Yes Systems reviewed as appropriate & no additional complaints except as documented Physical Exam General General appearance: alert Comment: Appearing uncomfortable in a chair Head Head exam: atraumatic and normocephalic Eye Eye exam: Present PERRL, EOMI and conjunctival redness ENT ENT exam: Present mucous membranes moist Neck Neck exam: Present normal inspection Chest Chest inspection: Present normal inspection and symmetric chest wall rise Respiratory Respiratory exam: Absent respiratory distress Cardiovascular Cardiovascular exam: Present regular rate and normal rhythm Extremities Exam Extremities exam: Present normal inspection Neurological Exam Neurological exam: Present alert and CN II-XII intact Psychiatric Psychiatric exam: Present normal affect Skin Skin exam: Present warm and dry Medical Decision Making Medical Records Screening: Per USPSTF and CDC recommendations, given the prevalence of disease in our region, it is our hospital?s policy to screen for HIV and viral Hepatitis for all patients aged 18 and over and those with ongoing risk factors. Noble Inquiry Pt receiving controlled substance: No Vital Signs: 09/26/25 16:21 Temperature 98 F Temperature Source Oral Pulse Rate [Left Radial] 75 Respiratory Rate 20 Blood Pressure [Right Arm] 142/76 H Blood Pressure Mean [Right Arm] 98 02 Sat by Pulse Oximetry 98 Oxygen Delivery Method Room Air Medical Decision Narrative: In summary patient 3-year-old female with past medical history of scrota above who presents emergency department for evaluation of a scratch to her right eye. Patient is hemodynamically stable nontoxic-appearing arrival, afebrile. Conjunctival injection on my exam. Fluorescein exam was conducted patient has a corneal abrasion just below her mid cornea in the direction towards 6:00 however it is oriented over her field of vision. Haris sign negative. No foreign body. Given this erythromycin ointment was applied and patient is appropriate for outpatient management at this time will follow-up Sunday with Dr. Osborne. Procedure: Procedure performed was fluorescein exam. Procedure form by Mykel Harrell. Topical tetracaine was instilled into the right eye with good effect. Fluorescein uptake over the cornea just below mid field of vision less than half a centimeter. Haris sign negative. Patient tolerated the procedure well there were no immediate complications. Erythromycin ointment 1/2 cm strip was applied to the inferior lid and patient blinked multiple times to cover her ocular surface. Critical Care Critical Care Time Critical Care Time: No
[2025-09-26] MEDS: FLUORESCEIN SODIUM 1MG STRIP 1 MG OP (16:49)
[2025-09-26] MEDS: TETRACAINE 0.5% OPTH SOL 15ML 15 ML OP (16:49)
[2025-09-26] MEDS: ERYTHROMYCIN BASE 1 GM OINT...G. OP (16:49)
[2025-09-26 16:57] VITALS: BP 142/96; PULSE 84; RESP 18; TEMP 36.8; O2SAT 100
== END 2025-09-26 17:00 | disposition home or self-care (01) ==
PROVIDERS: Emergency Provider Emergency Medicine; PCP Nurse Practitioner Family
DX: S05.01XA Injury of conjunctiva and corneal abrasion without foreign body, right eye, initial encounter (principal); W26.8XXA Contact with other sharp object(s), not elsewhere classified, initial encounter
CPT/HCPCS: 99283